=== PATIENT | female | born 1955 | race Caucasian/White ===

== ENCOUNTER 2024-04-01 17:11 | Emergency (ER) | payer MEDICARE ==
[~2024-04-01] VITALS: Ht 147.3 cm; Wt 58.1 kg
[2024-04-01] MEDS ORDERED: COQ-10100 MG PO (17:33)
[2024-04-01] MEDS ORDERED: ULTRAM 50MG50 MG PO (17:33)
[2024-04-01] MEDS ORDERED: LORATADINE10 MG PO (17:33)
[2024-04-01] MEDS ORDERED: POTASSIUM CHLO10 ME1 PO (17:33)
[2024-04-01] MEDS ORDERED: FUROSEMIDE40 MG PO (17:33)
[2024-04-01] MEDS ORDERED: VITAMIN D3250 MC1 PO (17:33)
[2024-04-01] MEDS ORDERED: TIZANIDINE HCL4 M1 PO (17:33)
[2024-04-01] MEDS ORDERED: ZESTRIL20 MG PO (17:33)
[2024-04-01] MEDS ORDERED: ATORVASTATIN CA10 MG PO (17:33)
[2024-04-01] MEDS ORDERED: FISH OIL 1,001000 M1 PO (17:33)
[2024-04-01] MEDS ORDERED: LEVOTHYROXINE88 MCG PO (17:33)
[2024-04-01] MEDS ORDERED: SUPER B-50 COM1 EAC2 PO (17:33)
[2024-04-01] MEDS ORDERED: SELENIUM200 MC2 PO (17:33)
[2024-04-01] MEDS ORDERED: SODIUM CHLORIDE 0.9% 1000ML 1,000 ML ONE (18:09)
[2024-04-01 18:12] LABS: BASOPHILS # (AUTO) 0.1 (0.0-0.1); BASOPHILS % 0.5 % (0.0-1.0); EOSINOPHILS % 0.1 % (0.0-6.0); HEMATOCRIT 36.7 % (34.2-44.1); HEMOGLOBIN 11.5 g/dL (12.0-16.0); LYMPHOCYTES # (AUTO) 1.9 (1.0-3.2); LYMPHOCYTES % 12.6 % (18.0-39.1); MEAN CORPUSCULAR HEMOGLOBIN 30.7 pg (28-32); MEAN CORPUSCULAR HGB CONC 31.3 g/dL (31-35); MEAN CORPUSCULAR VOLUME 97.9 fL (81-99); MONOCYTES # (AUTO) 1.6 (0.2-0.8); NEUTROPHILS # (AUTO) 11.3 (2.1-6.9); NEUTROPHILS % 75.5 % (38.7-80.0); PLATELET COUNT 501 x10e3/uL (140-360); RED BLOOD COUNT 3.75 x10e6/uL (3.6-5.1); RED CELL DISTRIBUTION WIDTH 12.4 % (11.7-14.4); WHITE BLOOD COUNT 14.91 x10e3/uL (4.8-10.8)
[2024-04-01] MEDS: SODIUM CHLORIDE 0.9% 1000ML 1,000 ML IV ONE (18:15)
[2024-04-01 18:20] LABS: CLARITY,URINE SL CLOUDY (CLEAR); COLOR,URINE AMBER (YELLOW); LEUKOCYTE ESTERASE ,URINE NEGATIVE (NEGATIVE); NITRITE,URINE NEGATIVE (NEGATIVE); PH,URINE 5.5 (5 - 7)
[2024-04-01 18:21] LABS: BILIRUBIN,URINE 1+ (NEGATIVE); GLUCOSE, URINE NEGATIVE (NEGATIVE); KETONES,URINE TRACE (NEGATIVE); PROTEIN,URINE DIPSTICK 2+ (NEGATIVE); URINE UROBILINOGEN 0.2 mg/dL (0.2 - 1)
[2024-04-01 18:24] LABS: ALBUMIN 3.8 g/dL (3.5-5.0); ANION GAP 18.8 mmol/L (8-16); BILIRUBIN,TOTAL 0.7 mg/dL (0.2-1.2); CALCIUM 9.6 mg/dL (8.4-10.2); CREATININE, SERUM 1.04 mg/dL (0.57-1.11); POTASSIUM 3.8 mmol/L (3.5-5.1); TOTAL PROTEIN 7.6 g/dL (6.5-8.1)
[2024-04-01 18:26] LABS: BACTERIA,URINE MANY /HPF; EPITHELIAL CELLS,URINE MODERATE /LPF; MUCUS,URINE FEW (RARE); RENAL EPITHELIAL CELLS,URINE FEW; TRANSITIONAL EPI CELLS,URINE MODERATE
[2024-04-01] MEDS ORDERED: ONDANSETRON ODT4 MG SL (19:09)
[2024-04-01] MEDS ORDERED: CEFDINIR300 MG PO (19:09)
[2024-04-01] MEDS ORDERED: CEFDINIR 300 MG CAP ONE (19:15)
[2024-04-01] MEDS ORDERED: ONDANSETRON HCL INJ 2MG/ML 2ML 2 MG/ML VIAL ONE (19:15)
[2024-04-01] MEDS ORDERED: DIFLUCAN100 MG PO (19:34)
[2024-04-01] MEDS: ONDANSETRON HCL INJ 2MG/ML 2ML 2 MG/ML VIAL IV STA (19:36)
[2024-04-01] MEDS: CEFDINIR 300 MG CAP PO ONE (19:36)
[2024-04-01 19:47] VITALS: PULSE 86; RESP 18; TEMP 99.1; O2SAT 99
== END 2024-04-01 19:57 | disposition home or self-care (01) ==
LOC: ER 17:17
DX: R10.30 Lower abdominal pain, unspecified (principal); K80.20 Calculus of gallbladder without cholecystitis without obstruction; R60.9 Edema, unspecified; E11.65 Type 2 diabetes mellitus with hyperglycemia; I10 Essential (primary) hypertension; E78.5 Hyperlipidemia, unspecified; E03.9 Hypothyroidism, unspecified; M54.9 Dorsalgia, unspecified; G89.29 Other chronic pain
CPT/HCPCS: 36415; 74176; 80053; 81001; 83690; 85025; 87086; 99284; J2405; J7030